=== PATIENT | male | born 1980 | race Caucasian/White ===

== ENCOUNTER → 2024-08-25 | Outpatient (CLI) | payer BC ==
[~2024-08-25] MED LIST: ACET160S3 OR; ASPI325T OR; BACT800T OR; LASI20TA OR; LISI10TA4 OR; PAIN325T OR; SM I100T OR; TYLENOL OR
== END ==
LOC: M RAD 18:49
PROVIDERS: ATTEND Physician Assistant
DX: M79.671 Pain in right foot (principal)

== ENCOUNTER → 2025-03-29 | Outpatient (CLI) | payer BC | LOC: M WUC 13:28 | DX: R06.02 Shortness of breath (principal) ==